=== PATIENT | male | born 1975 | race Caucasian/White ===

== ENCOUNTER 2020-02-13 15:02 | Emergency (ER) | payer MEDICAID ==
[~2020-02-13] VITALS: Ht 172.7 cm; Wt 79.1 kg
[~2020-02-13 15:02] MED LIST: OLANZapine 2.5MG tablet PO ONE
--- NOTE | 2020-02-13 15:51 | NUR ---
DAUGHTER CALLS AND SAYS THE PATIENT HAS HX OF SCHIZOPHRENIA, HAS NOT BEEN COMPLIANT WITH MEDS.
--- NOTE | 2020-02-13 15:52 | NUR ---
DAUGHTER- MESSI [phone]
[2020-02-13 17:04] LABS: BASOPHILS # (AUTO) 0.1 X10'3 (0-0.2); BASOPHILS % (AUTO) 1.1 % (0-1); EOSINOPHILS # (AUTO) 0.1 X10'3 (0-0.9); EOSINOPHILS % (AUTO) 0.9 % (0-6); HEMATOCRIT 44.8 % (42.0-52.0); HEMOGLOBIN 15.6 g/dl (14.0-17.9); LYMPHOCYTES # (AUTO) 1.4 X10'3 (1.1-4.8); LYMPHOCYTES % (AUTO) 17.4 % (21-51); MEAN CORPUSCULAR HEMOGLOBIN 33.6 PG (27.0-31.0); MEAN CORPUSCULAR HGB CONC 34.8 g/dL (33.0-36.5); MEAN CORPUSCULAR VOLUME 96.5 FL (78-98); MEAN PLATELET VOLUME 8.9 FL (7.4-10.4); MONOCYTES # (AUTO) 0.4 X10'3 (0-0.9); MONOCYTES % (AUTO) 4.8 % (2-12); NEUTROPHILS # (AUTO) 6.1 X10'3 (1.8-7.7); NEUTROPHILS % (AUTO) 75.8 % (42-75); PLATELET COUNT 204 X10'3 (140-440); RED BLOOD COUNT 4.64 X10'6 (4.70-6.10); RED CELL DISTRIBUTION WIDTH 13.9 % (11.5-14.5)
[2020-02-13] MEDS ORDERED: ibuprofen tablet 400 MG TABLET PO ONE (17:10)
[2020-02-13 17:11] LABS: ALANINE AMINOTRANSFERASE 37 U/L (12-78); ALBUMIN 3.9 G/DL (3.4-5.0); ALBUMIN/GLOBULIN RATIO 1.2 (1.1-1.5); ALKALINE PHOSPHATASE 131 IU/L (46-116); ANION GAP 10 (8-16); ASPARTATE AMINO TRANSFERASE 25 U/L (10-37); BILIRUBIN,TOTAL 0.7 MG/DL (0.1-1.0); BLOOD UREA NITROGEN 4 MG/DL (7-18); BUN/CREATININE RATIO 5.1 (5.4-32.0); CALCIUM 8.3 MG/DL (8.5-10.1); CHLORIDE 106 MMOL/L (99-107); CREATININE 0.79 MG/DL (0.60-1.10); ETHANOL 0.041 GM/DL (0.0-0.010); GLUCOSE 108 MG/DL (70-104); POTASSIUM 3.8 MMOL/L (3.5-5.1); SODIUM 143 MMOL/L (135-145); TOTAL PROTEIN 7.2 G/DL (6.4-8.2); eGFR > 90 ML/MIN
[2020-02-13 17:14] LABS: ACETAMINOPHEN < 2.0 UG/ML (10-30)
--- NOTE | 2020-02-13 17:23 | NUR ---
Nadja provided information quiet different from what pt stated himself. Per , pt drinks whiskey throughout the day along with roughly 2 6-pks of beer. The ETOH intake creates familial issues. reports pt put his finger down his throat to throw up the pills, which include more than the 5 penicillin tab reported originally. called LE for pt's safety and her own concern of safety for their 14 yr old son. The pills belong to his mother and included meds for CHF and dementia. Pt was dx w/ schizophrenia and dissociative d/o as a young adult including psychiatric placement and receipt of disability benefits as a result. Pt reports not being on any psych meds currently. Per Ndaja, she is seeking a safe place for her and their son d/t her concern about pt's outburst of anger and increasing destabilized moods. She asked if there was a way to be notified when pt is to be released. Will pass on request @ shift change.
[2020-02-13 17:35] LABS: URINE AMPHETAMINE SCREEN NEGATIVE (Neg); URINE BARBITUATE SCREEN NEGATIVE (Neg); URINE BENZODIAZEPINES SCREEN NEGATIVE (Neg); URINE CANNABINOID SCREEN POSITIVE (Neg); URINE COCAINE SCREEN NEGATIVE (Neg); URINE METHADONE SCREEN NEGATIVE (Neg); URINE OPIATE SCREEN NEGATIVE (Neg); URINE PHENCYCLIDINE SCREEN NEGATIVE (Neg)
--- NOTE | 2020-02-13 20:15 | NUR ---
Pt given green blanket, and a pillow, got into bed and is resting on his R side.
--- NOTE | 2020-02-13 20:54 | NUR ---
FREDERICK PACING IN BACK AND FORTH IN ROOM COOPERATIVE ASKED PATIENT WHY HE IS PACING HE REPORTS HE WANTS SOMETHING FOR SLEEP, ASKED WHAT HE NORMALLY TAKES HE REQUESTED BENADRYL HE TAKES FOUR TABLETS AT A TIME OR 100MG TO SLEEP AND REPORTS HE CAN NOT TAKE MELATONIN IT MAKES HIM ACT WEIRD. DR ROBLEDO NOTIFIED AND VERBALORDER RECEIVED FOR BENADRYL 50 MG PO [facility]
[2020-02-13] MEDS ORDERED: diphenhydrAMINE 25mg capsule PO ONE (21:00)
--- NOTE | 2020-02-13 21:16 | NUR ---
[facility] HERE TO SANDIE PATIENT NOTED STASN WEARING [place] BAND UNABLE TO REMOVE WITHOUT CUTTING OFF, HAS EYE GLASSES FOR SIGHT.
--- NOTE | 2020-02-13 22:00 | NUR ---
awake pacing room after [facility] eval. states can not sleep. Dr Cook aware
--- NOTE | 2020-02-13 23:00 | NUR ---
resting eyes open lying on bed quiet behavior. Water at bedside
[2020-02-13] MEDS ORDERED: NO HOME MEDS (23:10)
--- NOTE | 2020-02-14 | NUR ---
sleeping no signs of distress. Even unlabored respirations.
--- NOTE | 2020-02-14 00:03 | NUR ---
gave zyprexa as ordered 10 mg po
--- NOTE | 2020-02-14 01:00 | NUR ---
sittingon edge of bed, crying, did not want to discuss what he was thingking.
--- NOTE | 2020-02-14 02:00 | NUR ---
lying supine eyes closed, no apparent distress, respirations even and unlabored
--- NOTE | 2020-02-14 03:00 | NUR ---
sleeeping lying on right side
--- NOTE | 2020-02-14 04:53 | NUR ---
uneventful for night, repostion self slept approx 7 hours
--- NOTE | 2020-02-14 06:51 | NUR ---
spoke with [facility] Yumiko verified zyprexa dose 10 mg given/scanned at 0003 04/16/19 Rx # [id number] Yumiko reports that she is unsure why we cant see the given medication that was scanned in at 0003, she further sugeests the we clarify order with MD prior to 0800 dose given. Lelia SANCHEZ notified of the above situation as written
[2020-02-14] MEDS: OLANZapine 2.5MG tablet PO SCH ×3 (08:00→14:44)
--- NOTE | 2020-02-14 08:28 | NUR ---
PT SLEEPING, WILL HOLD THE ZYPREXA AT THIS TIME.
--- NOTE | 2020-02-14 10:30 | NUR ---
PT SLEEPING, PT'S CALLS FOR AN UPDATE.
--- NOTE | 2020-02-14 12:04 | NUR ---
RN FROM [facility] CALLS FOR UPDATE REPORT ON PT. SHE WILL PRESENT THE PT TO HER PROVIDER GILBERTO SHETTY AND THEN SHE WILL NOTIFY US IF THEY ARE GOING TO ACCEPT HIM. THEY HAVE NO BEDS TODAY BUT MAY HAVE BEDS TOMORROW.
--- NOTE | 2020-02-14 12:14 | NUR ---
UA AND TSH ADDED TO LABS. URINE COLLECETED IN ROOM AND SENT TO LAB. VS UPDATED.
[2020-02-14 12:29] LABS: CLARITY,URINE CLEAR (Clear); COLOR,URINE STRAW (Yellow); GLUCOSE, URINE NEGATIVE (Neg); KETONES,URINE NEGATIVE (Neg); LEUKOCYTE ESTERASE ,URINE NEGATIVE (Neg); NITRITES, URINE NEGATIVE (Neg); OCCULT BLOOD,URINE NEGATIVE (Neg); PROTEIN,URINE NEGATIVE (Neg); UROBILINOGEN,URINE 0.2 E.U/dL (0.2-1.0)
[2020-02-14 12:31] LABS: UA COLLECTION TYPE VOIDED
--- NOTE | 2020-02-14 12:56 | NUR ---
Patient is resting, vital signs are stable, respiration is even and unlabored.
--- NOTE | 2020-02-14 15:00 | NUR ---
PT'S CALLS AND TALKS TO THE PT. PT COMES UP TO NURSES STATION TO HAVE THE NURSE TALK TO HIS . PT'S STATES THAT HER DOESNT WANT HER CALLING HIM. INFORM HER THAT SHE CAN CALL AND GET UPDATES FROM THE NURSE SO SHE DOESNT HAVE TO TALK TO HIM.
--- NOTE | 2020-02-14 19:20 | NUR ---
AWAKE WENT TO RESTROOM
--- NOTE | 2020-02-14 20:42 | NUR ---
Pt. in bed resting quietly
--- NOTE | 2020-02-14 21:30 | NUR ---
SUPINE POSITION EYES CLOSED, RESTING NO APPARENT DISTRESS.
--- NOTE | 2020-02-14 22:30 | NUR ---
UP TO BATHROOM NO COMPLAINTS.
--- NOTE | 2020-02-14 23:33 | NUR ---
EYES CLOSED LYING SUPINE NO SIGNS OF DISTRESS
--- NOTE | 2020-02-15 00:24 | NUR ---
EYES CLOSED LYING SUPINE NO SIGNS OF DISTRESS
--- NOTE | 2020-02-15 01:18 | NUR ---
awake in bathroom toilet flushed 5 times, patient came out of bathroom, looked at other staf went to bed then looked back to station I asked if he felt ok? Patient reports, "Not really that all his rights were taken away being here, no one understands him." reports he is cold and want to go back to sleep. [place]bes given.
--- NOTE | 2020-02-15 01:41 | NUR ---
EYES CLOSED LYING SUPINE NO SIGNS OF DISTRESS
--- NOTE | 2020-02-15 02:30 | NUR ---
EYES CLOSED LYING LEFT SIDE NO SIGNS OF DISTRESS
--- NOTE | 2020-02-15 03:47 | NUR ---
AWAKE SITTING ON EDGE OF BED THAN GRABBED WATER PITCHER AND TRIED TO FILL HIS OWN WATER FROM THE EYE CLEANING STATION. ADVISED THAT IS NOT THE SINK FOR FILLING A WATER PITCHER REDIRECTED BACK TO BED. NEW PITCHER WITH ICE WATER GIVEN TO PATIENT. STILL REMAINS SITTING ON EDGE OF BED LOOKING AT FLOOR.
[2020-02-15] MEDS ORDERED: chlordiazePOXIDE 25mg capsule PO ONE (05:20)
--- NOTE | 2020-02-15 05:23 | NUR ---
NOTIFIED DR ROBLEDO OF CHANGE IN BP DIASTOLIC HTN PATIENT HANDS SLIGHT TREMORS AND AGITATION WITH REFUSAL TO COOPERATE STATING HE IS NOT GOING THROUGH ALCOHOL WITHDRAWLS AND OH THATS RIGHT HE IS NOT ALLOWED TO HAVE ANY CONTROL OVER HIS LIFE RIGHT NOW." REDIRECTED TO THE THE TREATMENT OF THE CARE HE IS GETTING TO PREVENT WITHDRAWL HE STATES HE DOES NOT DRINK THE AMOUNT HE IS GETTING ACCUSED OF. PATIENT EDUCATED OF HIS BLOOD ALCOHOL LEVEL WHEN ADMITTED AND S/S OF WITHDRAWL HE STATED FINE!" AND TOOK THE MEDICATION.
--- NOTE | 2020-02-15 07:00 | NUR ---
Received pt asleep in bed without signs of distress.
[2020-02-15] MEDS: OLANZapine 2.5MG tablet PO SCH ×2 (08:00→08:12)
--- NOTE | 2020-02-15 09:00 | NUR ---
Pt awoke for breakfast and was cooperative with am assessment and took his medications. Pt currently denies S.I. and voices desire to discharge saying he has things he has to take care of.
--- NOTE | 2020-02-15 11:00 | NUR ---
Pt remains sleeping without signs of distress.
--- NOTE | 2020-02-15 13:00 | NUR ---
Pt remains sleeping in bed without signs of distress or complaints.
--- NOTE | 2020-02-15 15:06 | NUR ---
Pt up for lunch then returned to sleep.
--- NOTE | 2020-02-15 15:08 | NUR ---
Received Pt in bed sleeping w/o distress.
--- NOTE | 2020-02-15 17:14 | NUR ---
Pt in pleasant mood. In bed talking to on the phone.
[2020-02-15 17:35] VITALS: BP 150/115
[2020-02-15] MEDS ORDERED: ibuprofen 200mg tablet PO PRN (17:45)
--- NOTE | 2020-02-15 18:22 | NUR ---
Pt c/o elbow pain from old injury that was reinjured when brought in on hold. Order obtained from PA and pt given prn ibuprophen. Pt in bed eating dinner.
--- NOTE | 2020-02-15 19:10 | NUR ---
[facility] CALLED AND STATED THAT THEY WOULD BE COMING DOWN AND TAKING THE PATIENT UPSTAIRS TO [facility]
--- NOTE | 2020-02-15 19:57 | NUR ---
report called to zachariah with [facility]. discussed [id number] placed about 3 days ago per pt, with attempt to od on PCN, which he is allergic to. pt induced vomitting after attempt. pt has been trying to sell a family estate, adding much stress to his daily life. pt given permission to communicate with ti. no medical hx. no current meds. saw psych up until 18 for depression.
[2020-02-18] MEDS ORDERED: TRAZ-251 PO (14:26)
[2020-02-18] MEDS ORDERED: LISI-600 PO (14:26)
[2020-02-18] MEDS ORDERED: ESCI5TAB PO (14:26)
== END 2020-02-15 19:59 | disposition home or self-care (01) ==
LOC: ER 15:03
DX: T36.0X2A Poisoning by penicillins, intentional self-harm, initial encounter (principal); R11.10 Vomiting, unspecified; Z88.0 Allergy status to penicillin; Y92.89 Other specified places as the place of occurrence of the external cause
CPT/HCPCS: 36415; 80053; 80305; 80320; 80329; 81003; 84443; 85025; 93005; 99285; Q0163

== ENCOUNTER 2021-07-07 11:11 | Emergency (ER) | payer MEDICAID ==
[~2021-07-07] VITALS: Ht 170.2 cm; Wt 75.0 kg
[~2021-07-07 11:11] MED LIST changes: +ESCI5TAB PO; +LISI20TA28 PO; -OLANZapine 2.5MG tablet PO ONE; +TRAZ-251 PO
[2021-07-07 11:22] VITALS: BP 137/93
[2021-07-07] MEDS ORDERED: ketorolac trometh. 30mg/ml inj. IM ONE (14:30)
--- NOTE | 2021-07-07 14:37 | NUR ---
Pt seen and assessed by CATHRYN Dahl. After the encounter, pt states that he does not want to wait anymore and is leaving. Pt ambulated off the unit with use of his cane in no acute distress. CATHRYN Dahl made aware.
== END 2021-07-07 15:00 | disposition left against medical advice (07) ==
LOC: ER 11:12
DX: S90.122A Contusion of left lesser toe(s) without damage to nail, initial encounter (principal); S90.121A Contusion of right lesser toe(s) without damage to nail, initial encounter; M54.50 Low back pain, unspecified; M79.672 Pain in left foot; M79.674 Pain in right toe(s); M79.675 Pain in left toe(s); G89.29 Other chronic pain; G62.9 Polyneuropathy, unspecified; R10.2 Pelvic and perineal pain; F17.200 Nicotine dependence, unspecified, uncomplicated; Z79.899 Other long term (current) drug therapy; W19.XXXA Unspecified fall, initial encounter; Y93.89 Activity, other specified; Y92.89 Other specified places as the place of occurrence of the external cause; Y99.8 Other external cause status
CPT/HCPCS: 73610; 73630; 99284